=== PATIENT | male | born 1990 | race Caucasian/White ===

== ENCOUNTER 2019-03-05 15:56 | Inpatient (IN) | payer MEDICAID ==
[~2019-03-05] VITALS: Ht 180.3 cm; Wt 83.9 kg
[~2019-03-05 15:56] MED LIST: ACYCLOVIR IV 1 GM in IV D5W 250 ML IV SCH
[2019-03-05] MEDS ORDERED: FEE PK DOSING 1 MIN EA MC ONE (16:01)
[2019-03-05] MEDS ORDERED: QUET25TA PO (16:20)
--- NOTE | 2019-03-05 16:24 | NUR ---
[facility] ([phone]) RE: PATIENT, STATING PATIENT BEING A MISSING PERSON. PER PD, WILL CALL US BACK FOR MORE INFO, SUCH FAMILY INFO.
[2019-03-05] MEDS ORDERED: PIPERACILLIN /TAZOBACTAM 3.375 G in IV D5W 50 ML IV ONE (16:30)
[2019-03-05] MEDS ORDERED: VANCOMYCIN 1 GM in IV D5W 250 ML IV ONE (16:30)
[2019-03-05] MEDS ORDERED: IV NS 0.9% 1,000 ML BAG IV ONE (16:30)
[2019-03-05 16:38] LABS: BASOPHILS # (AUTO) 0.1 /CMM (0.0-0.2); BASOPHILS % (AUTO) 0.3 % (0.0-2.0); EOSINOPHILS % (AUTO) 0.4 % (0.0-6.0); HEMATOCRIT 44 % (39-51); HEMOGLOBIN 14.8 g/dL (13.5-17.5); LYMPHOCYTES # (AUTO) 1.4 /CMM (0.8-4.8); LYMPHOCYTES % (AUTO) 8.2 % (20.0-44.0); MEAN CORPUSCULAR HGB CONC 34 g/dl (31.0-36.0); MEAN CORPUSCULAR VOLUME 90 fL (80-96); MONOCYTES # (AUTO) 1.7 /CMM (0.1-1.30); MONOCYTES % (AUTO) 9.6 % (2.0-12.0); NEUTROPHILS # (AUTO) 14.4 /CMM (1.8-8.9); NEUTROPHILS % (AUTO) 81.5 % (43.0-81.0); PLATELET COUNT (AUTO) 295 /CMM (150-450); RED BLOOD CELL COUNT(AUTO) 4.94 MIL/uL (4.5-6.0); WHITE BLOOD COUNT (AUTO) 17.6 K/uL (4.3-11.0)
[2019-03-05 16:47] LABS: CALCIUM, SERUM 9.6 mg/dL (8.5-10.1); CARBON DIOXIDE 24 mmol/L (21-32); CHLORIDE 104 mmol/L (98-107); CREATININE 1.3 mg/dL (0.6-1.3); GLUCOSE 122 mg/dL (74-106); POTASSIUM 4.3 mmol/L (3.5-5.1); SODIUM SERUM 143 mmol/L (136-145); UREA NITROGEN, BLOOD 20 mg/dL (7-18)
--- NOTE | 2019-03-05 16:47 | NUR ---
[address]IB [address] C/O AGITATION, +HEARING VOICES, -SI. STOP TAKING SEROQUEL. PT AAOX3, VSS. PT STS THAT HE DROVE FROM [facility] TO GO TO [place]. PT STS HE LOST HIS CAR. PT CALM & COOPERATIVE AT THIS TIME. DENIES CP, SOB, DIZZINESS, N/V/D, ABD PAIN AT THIS TIME & WILL CONT TO MONITOR.
[2019-03-05 16:53] LABS: ALANINE AMINOTRANSFERASE 45 U/L (12-78); ALBUMIN 4.6 g/dL (3.4-5.0); ALCOHOL, BLOOD < 3 mg/dL (0-0); ALKALINE PHOSPHATASE 58 U/L (46-116); ASPARTATE AMINOTRANSFERASE 64 U/L (15-37); BILIRUBIN,DIRECT 0.3 mg/dL (0.0-0.2); BILIRUBIN,TOTAL 1.8 mg/dL (0.2-1.0); TOTAL PROTEIN, SERUM 8.4 g/dL (6.4-8.2)
[2019-03-05 16:54] LABS: ACETAMINOPHEN 5 ug/ml (10-30); SALICYLATE < 2.0 mg/dL (2.8-20.0)
[2019-03-05] MEDS ORDERED: QUETIAPINE FUMARATE 100 MG TABLET PO SCH (18:30)
[2019-03-05] MEDS ORDERED: QUETIAPINE FUMARATE 25 MG TABLET ONE (18:39)
[2019-03-05] MEDS ORDERED: LORAZEPAM INJ 2 MG/ML VIAL IM ONE ×2 (19:00→20:00)
[2019-03-05] MEDS ORDERED: diphenhydrAMINE HCL 50 MG/ML VIAL IM ONE ×2 (19:00→20:00)
[2019-03-05] MEDS ORDERED: HALOPERIDOL LACTATE INJ 5 MG/ML VIAL IM ONE ×2 (19:00→19:30)
[2019-03-05] MEDS ORDERED: LORAZEPAM INJ 2 MG/ML VIAL ONE (19:00)
[2019-03-05] MEDS ORDERED: HALOPERIDOL LACTATE INJ 5 MG/ML VIAL ONE (19:00)
[2019-03-05] MEDS ORDERED: diphenhydrAMINE HCL 50 MG/ML VIAL ONE (19:00)
[2019-03-05] MEDS ORDERED: diphenhydrAMINE HCL 50 MG/ML VIAL IV ONE (19:30)
[2019-03-05] MEDS ORDERED: ZOLPIDEM TARTRATE 5 MG TABLET PO PRN (19:30)
[2019-03-05] MEDS ORDERED: Z GUARD REMEDY 2 OZ OINT TP PRN (19:30)
[2019-03-05] MEDS ORDERED: ONDANSETRON HCL/PF 4 MG/2 ML VIAL IVP PRN (19:30)
[2019-03-05] MEDS ORDERED: ACETAMINOPHEN 325 MG TABLET PO PRN (19:30)
[2019-03-05] MEDS ORDERED: LORAZEPAM INJ 2 MG/ML VIAL IVP ONE (19:30)
[2019-03-05] MEDS ORDERED: HYDROCODONE/APAP 5/325MG 1 EACH TABLET PO PRN (19:30)
[2019-03-05] MEDS ORDERED: MAGNESIUM HYDROXIDE 30 ML UDC PO PRN (19:30)
[2019-03-05] MEDS ORDERED: IV NS 0.9% 1,000 ML IV PRN (19:30)
--- NOTE | 2019-03-05 19:41 | NUR ---
PT GETTING RESTLESS, PULLED IV & TRYING TO LEAVE. MEDICATED PER PA'S ORDER. PLACED ON 4 PT RESTRAINTS FOR PT'S SAFETY, INTACT WITH GOOD CMS. WILL CONT TO MONITOR.
[2019-03-05 21:04] LABS: APPEARANCE,URINE Clear (CLEAR); BILIRUBIN,URINE SMALL (NEGATIVE); BLOOD, URINE Trace-intact Ery/uL (NEGATIVE); COLOR,URINE Yellow (YELLOW); KETONES,URINE 40 (NEGATIVE); LEUKOCYTE ESTERASE ,URINE Negative (NEGATIVE); NITRITE, URINE Negative (NEGATIVE); PROTEIN,URINE 100 mg/dl (NEGATIVE); UGLUCOSE Negative (NEGATIVE); UROBILINOGEN,URINE 0.2 EU/dL (0.2)
[2019-03-05 21:06] LABS: BACTERIA,URINE Few /HPF (None Seen); MUCUS,URINE Many /LPF (None Seen); SQUAMOUS EPITHELIAL CELL,UR None Seen /HPF (None Seen)
--- NOTE | 2019-03-05 21:30 | NUR ---
RN NOTES ADMITTED A 28 Y/O MALE, FROM ER VIA [facility], INITIAL ASSESSMENT AND ADMISSION DONE, INFORMED JOHANNA REGARDING ADMISSION, PATIENT SLEEPING AT THIS TIME WITH A SITTER, SAFETY MEASURES IN PLACE, WILL CONTINUE TO MONITOR.
[2019-03-05] MEDS ORDERED: ENOXAPARIN SODIUM 80 MG/0.8 ML DISP.SYRIN SQ ONE (23:30)
[2019-03-05] MEDS ORDERED: LORAZEPAM INJ 2 MG/ML VIAL IV ONE (23:30)
--- NOTE | 2019-03-06 00:05 | NUR ---
RN NOTES PATIENT TRANSPORTED TO RADIOLOGY DEPARTMENT FOR CT OF THE HEAD W/O CONTRAST.
[2019-03-06] MEDS ORDERED: CEFTRIAXONE 1 G VIAL ONE (00:09)
--- NOTE | 2019-03-06 00:23 | NUR ---
RN NOTES CAME BACK FROM RADIOLOGY DEPT.
[2019-03-06] MEDS ORDERED: VANCOMYCIN 1 GM VIAL ONE (00:41)
[2019-03-06] MEDS ORDERED: ACYCLOVIR IV 500 MG VIAL IV ONE (01:08)
[2019-03-06] MEDS: ACYCLOVIR IV 1 GM in IV D5W 250 ML IV SCH ×2 (03:49→11:59)
[2019-03-06 07:11] LABS: BASOPHILS % (AUTO) 0.3 % (0.0-2.0); EOSINOPHILS % (AUTO) 1.9 % (0.0-6.0); HEMATOCRIT 38 % (39-51); HEMOGLOBIN 12.8 g/dL (13.5-17.5); LYMPHOCYTES # (AUTO) 1.2 /CMM (0.8-4.8); MEAN CORPUSCULAR HGB CONC 34 g/dl (31.0-36.0); MEAN CORPUSCULAR VOLUME 90 fL (80-96); MONOCYTES % (AUTO) 7.7 % (2.0-12.0); NEUTROPHILS # (AUTO) 10.7 /CMM (1.8-8.9); NEUTROPHILS % (AUTO) 81.1 % (43.0-81.0); PLATELET COUNT (AUTO) 213 /CMM (150-450); RED BLOOD CELL COUNT(AUTO) 4.24 MIL/uL (4.5-6.0); WHITE BLOOD COUNT (AUTO) 13.2 K/uL (4.3-11.0)
[2019-03-06 07:21] LABS: CALCIUM, SERUM 7.6 mg/dL (8.5-10.1); CREATININE 0.9 mg/dL (0.6-1.3); MAGNESIUM 2.2 mg/dL (1.8-2.4); PHOSPHORUS 3.1 mg/dL (2.5-4.9); POTASSIUM 3.5 mmol/L (3.5-5.1)
--- NOTE | 2019-03-06 07:24 | NUR ---
RN NOTES ALL NEEDS ATTENDED AND MET, SLEEPING THE ENTIRE NIGHT SINCE ADMISSION AT 2100, AROUSABLE SITTER AT BEDSIDE PRECAUTIONARY MEASURE OBSERVED FOR POSSIBLE VIRAL / BACTERIAL MENINGITIS PER JOHANNA SKY. ALL SAFETY MEASURES IN PLACE, KEEP RESTED. MOM FORTUNATO REARDON ) CALLED AT 0700 GAVE THE PATIENT'S PSYCHIATRIST CONTACT NUMBER [phone], STATES THAT [facility] HAS A PRESCRIBED MEDICATION LITHIUM 600 MG AND LATUDA 60 MG, HE IS SUPPOSED TO BE TAKING THE MEDICATION BUT HE ABRUPTLY STOPPED TAKING THOSE MEDICATIONS REGULARLY, PATIENT LEFT THE [facility]( [facility] ) LAST TUESDAY PER MOM, INFORMED MOM REGARDING PATIENT'S CURRENT CONDITION AND THAT MD AND AM NURSE WILL CONTACT HER TODAY FOR MORE INFORMATION IF NEEDED. ENDORSED TO FELICIA RODRIGUEZ LVN AND AM NURSE JUDITH FOR CONTINUITY OF CARE.
[2019-03-06] MEDS: VANCOMYCIN 0.75 GM in IV D5W 250 ML IV SCH ×4 (07:58→16:04)
--- NOTE | 2019-03-06 08:00 | NUR ---
RN OPENING NOTE RECEIVED PT. PT STABLE RESTING IN BED. NO S/S OF RESP DISTRESS. NO C/O PAIN. 1:1 SITTER AT BEDSIDE. DROPLET PRECAUTIONS IN PLACE FOR SUSPECTED BACTERIAL/VIRAL MENINGITIS. HEAD CT NEGATIVE, PT DENIES HEADACHE AT THIS TIME. SAFETY MEASURES IN PLACE, CALL LIGHT IN REACH. WILL CONT TO MONITOR.
--- NOTE | 2019-03-06 08:00 | NUR ---
m/s cutting inspector: notes during my assessment, pt awakens then goes back to sleep, will only say one word "good morning." speech clear. i am unable to assess his skin integrity at this time, will assess when pt is fully awake. will continue to monitor.
[2019-03-06 08:30] VITALS: BP 127/59
--- NOTE | 2019-03-06 08:30 | NUR ---
m/s english and reading instructor: notes pt remains asleep, but easily arousable. able to take his vital signs except for temperature at this time due to pt not fully awake. will continue to monitor.
--- NOTE | 2019-03-06 10:30 | NUR ---
m/s plasma cutting machine operator: wound consult ella (rn) at bedside and assessed yfn foot blisters. pt allowed staff to check his feet, but not entire body. respected pt wish and pt fell asleep after assessment. will continue to monitor.
--- NOTE | 2019-03-06 10:40 | NUR ---
WOUND CARE CONSULT: PT PRESENTS WITH MULTIPLE BLISTERS ON HIS FEET, PRESENT ON ADMISSION. RECOMMEND DPM CONSULT. DR WILLINGHAM NOTIFIED OF DPM CONSULT. PT IS CONTINENT AND INDEPENDENT WITH BED MOBILITY. WILL SEE PRN.
[2019-03-06] MEDS: ENOXAPARIN SODIUM 80 MG/0.8 ML DISP.SYRIN SQ SCH ×2 (12:00→22:34)
--- NOTE | 2019-03-06 12:30 | NUR ---
m/s constitutional law professor: md visit seen and examined by dr. avery at this time.
[2019-03-06] MEDS: LITHIUM CARBONATE (300 MG CAP) 300 MG CAPSULE PO SCH ×2 (13:48→16:07)
[2019-03-06] MEDS: QUETIAPINE FUMARATE 100 MG TABLET PO SCH (13:49)
--- NOTE | 2019-03-06 14:00 | NUR ---
m/s traveling passenger agent: semiconductor manufacturing technician consult seen by dr. mcgregor at this time.
[2019-03-06] MEDS: LACTOBACILLUS RHAMNOSUS GG 1 EACH CAP.SPRINK PO SCH (16:04)
--- NOTE | 2019-03-06 17:00 | NUR ---
m/s glue maker bone: neuro consult seen by dr. grant at this time.
--- NOTE | 2019-03-06 18:45 | NUR ---
m/s supervisor rolling room: id consult seen by mamta (kristen) at this time.
--- NOTE | 2019-03-06 18:52 | NUR ---
RN CLOSING NOTE PT IN BED RESTING. PT'S MOTHER, FORTUNATO, ASKS THAT CASE MANAGEMENT BE CONTACTED FOR D/C PLACEMENT TO ADULT PSYCHIATRIC FACILITY.. ALL PT NEEDS ANTICIPATED AND MET. SAFETY MEASURES IN PLACE, CALL LIGHT WITHIN REACH. WILL ENDORSE TO BATTERY CONTAINER FINISHING HAND FOR ONELIA.
--- NOTE | 2019-03-06 19:25 | NUR ---
RN Notes Received patient asleep with HOB slightly elevated, breathing regular and unlabored, no signs of distress and discomfort noted. IV access on right AC patent and intact with ongoing IVF infusing well. Safety measures and fall precaution observed, with sitter at bedside. Will continue to monitor patient.
[2019-03-06] MEDS: IV NS 0.9% 1,000 ML IV PRN (22:37)
--- NOTE | 2019-03-06 22:45 | NUR ---
RN Notes Patient moved to room 205-1, awake, alert and verbal in stable condition. All IV meds and belongings sent with the and endorsed patient to [facility].
--- NOTE | 2019-03-06 23:00 | NUR ---
MS RN NOTE: RECEIVED PATIENT FROM [facility], NO ACUTE DISTRESS NOTED. BREATHING EVEN AND UNLABORED, NO SOB NOTED. IV TO RAC IN PLACE. SITTER AT BEDSIDE. BED LOCKED AND IN LOWEST POSITION, CALL LIGHT IN REACH. WILL CONTINUE TO MONITOR.
[2019-03-07] MEDS: CEFTRIAXONE 1 G in IV D5W 50 ML IV SCH ×2 (00:34→00:36)
[2019-03-07] MEDS: VANCOMYCIN 0.75 GM in IV D5W 250 ML IV SCH ×3 (01:09→16:03)
[2019-03-07] MEDS: QUETIAPINE FUMARATE 100 MG TABLET PO SCH ×3 (01:19→17:33)
--- NOTE | 2019-03-07 06:07 | NUR ---
MS RN NOTE: PATIENT RESTING IN BED, NO ACUTE DISTRESS NOTED. BREATHING EVEN AND UNLABORED, NO SOB NOTED. IV TO RAC IN PLACE, INFUSING NS AT 100ML/HR. SITTER AT BEDSIDE. BED LOCKED AND IN LOWEST POSITION, CALL LIGHT IN REACH. WILL ENDORSE TO DAY NURSE TO CONTINUE WITH PLAN OF CARE.
--- NOTE | 2019-03-07 07:15 | NUR ---
MS RN NOTE: RECEIVED CALL FROM PATIENT MOTHER, FORTUNATO, THAT PATIENT CALLED HER AND INFORMED HER THAT HE IS IN MANIC PHASE AND SAYING THAT PATIENT MORE PARANOID. CONTACTED QUIRK SANDER MD TO HAVE PATIENT SEEN BY PSYCH MD. RECEIVED OK FOR PSYCH EVAL, FACE SHEET FAXED TO GPS AND INFORMED CHARGE NURSE IN GPS TO HAVE PSYCH MD EVAL PATIENT. PATIENT MOTHER NUMBER IS [phone]. PATIENT PSYCH DOCTOR IS DR. DOYLE AT [phone]. WILL ENDORSE TO DAY NURSE
[2019-03-07 08:00] VITALS: BP 181/89
--- NOTE | 2019-03-07 08:00 | NUR ---
MS RN AM Notes Received patient awake,anxious and angry talking on the phone. No SOB.breathing regular and unlabored, no signs of distress and discomfort noted. IV access on right AC patent and intact with ongoing IVF infusing well. Safety measures and fall precaution observed, with 1:1 sitter at bedside. Seen by Dr Wills with orders carried out.Awaiting for psych consult with Dr Patel. GPS aware.Will continue to monitor patient.
[2019-03-07] MEDS ORDERED: LACTULOSE 10 G/15 ML UDC (PYXIS) PO PRN (08:30)
[2019-03-07] MEDS: LITHIUM CARBONATE (300 MG CAP) 300 MG CAPSULE PO SCH ×3 (09:05→17:32)
[2019-03-07] MEDS: LACTOBACILLUS RHAMNOSUS GG 1 EACH CAP.SPRINK PO SCH ×2 (09:05→17:33)
[2019-03-07] MEDS: RIVAROXABAN 15 MG TABLET PO SCH ×2 (09:16→17:34)
--- NOTE | 2019-03-07 09:17 | NUR ---
MS RN NOTE SPOKE WITH MOTHER FORTUNATO VIA TELEPHONE. PER FORTUNATO SHE IS CONCERNED THAT THE PT HAS BEEN CALLING HER AND PER FORTUNATO "SAYING HE IS WORRIED SOMEONE IS GOING TO KILL HIM BUT HE WON'T SAY IT TO YOU". PER FORTUNATO "HE HAS A COURT ORDER TO TAKE HIS MEDICATIONS", THE NURSE REQUESTED THAT THIS DOCUMENTATION BE FAXED TO THE UNIT, HOWEVER FORTUNATO STATED SHE DID NOT HAVE THE DOCUMENTS WITH HER AT THIS TIME. PER FORTUNATO "THE BACK GRINDER HAS IT". THE NURSE PROVIDED FAX NUMBER FOR THE UNIT. FORTUNATO PROVIDED PRIMARY PSYCHIATRIST INFORMATION () [phone], PLACED INFORMATION IN THE CHART AND FLAGGED FOR CONSULTING [place] PSYCHIATRIST. INFORMED FORTUNATO THAT AT THIS TIME PT HAS A 1:1 SITTER FOR SAFETY AND AN ORDER HAS BEEN PLACED FOR PSYCH CONSULT. FOTRUNATO STATED "HE NEEDS A SHOT WHEN HE GETS LIKE THIS". INFORMED FORTUNATO THAT MEDICATIONS WILL BE REVIEWED AND THE PSYCHIATRIST WILL ORDER WHAT IS APPROPRIATE AFTER ASSESSMENT. FORTUNATO STATED "OKAY THANKS".
[2019-03-07 09:18] LABS: BASOPHILS % (AUTO) 0.4 % (0.0-2.0); EOSINOPHILS % (AUTO) 1.8 % (0.0-6.0); HEMATOCRIT 40 % (39-51); HEMOGLOBIN 13.4 g/dL (13.5-17.5); LYMPHOCYTES # (AUTO) 1.5 /CMM (0.8-4.8); LYMPHOCYTES % (AUTO) 14.1 % (20.0-44.0); MEAN CORPUSCULAR HGB CONC 34 g/dl (31.0-36.0); MEAN CORPUSCULAR VOLUME 89 fL (80-96); MONOCYTES # (AUTO) 0.9 /CMM (0.1-1.30); MONOCYTES % (AUTO) 8.8 % (2.0-12.0); NEUTROPHILS % (AUTO) 74.9 % (43.0-81.0); PLATELET COUNT (AUTO) 244 /CMM (150-450); RED BLOOD CELL COUNT(AUTO) 4.42 MIL/uL (4.5-6.0); WHITE BLOOD COUNT (AUTO) 10.7 K/uL (4.3-11.0)
--- NOTE | 2019-03-07 09:19 | NUR ---
MS RN NOTE INFORMED PILO IN [facility] OF NEED FOR PSYCH CONSULT. VERIFIED ORDER AND FAXED FACE SHEET TO GPS.
[2019-03-07 09:31] LABS: ALBUMIN 3.4 g/dL (3.4-5.0); BILIRUBIN,TOTAL 0.5 mg/dL (0.2-1.0); CALCIUM, SERUM 8.8 mg/dL (8.5-10.1); POTASSIUM 3.7 mmol/L (3.5-5.1); TOTAL PROTEIN, SERUM 7.2 g/dL (6.4-8.2)
--- NOTE | 2019-03-07 09:40 | NUR ---
Seen by Dr Patel with orders made and carried out.Refused to talk to pt's psych MD saying he doesn't need to talk to pt's psych MD.Also Dr Patel stated that the pt doesn't need to be seen by Crisis Team either. Informed GPS to cancel Crisis Team for the pt per Dr Patel.
[2019-03-07 10:19] LABS: THYROID STIMULATING HORMONE 1.466 uIU/mL (0.358-3.74)
--- NOTE | 2019-03-07 11:36 | NUR ---
Social service consult requested by YAAKOV Bah for homelessness. Pt. is a 28 year old male with a history of bipolar disorder and schizophrenia who was brought in by rescue ambulance from the streets with abnormal behavior. Per EMS they found patient crawling on the ground and behaving strangely. SW met with pt. bedside. Pt's cousin Vitaliy was visiting bedside. Vitaliy stepped outside the room during the assessment for privacy. Pt. is alert and oriented x 3. SW asked pt. if he is homeless and pt. stated, " People are making me homeless." Pt. states he lives with his mom in [place] and drove down to [place] five days ago. Pt. stated he came to [place] to visit his cousin Vitaliy but couldn't find him. While in [place], pt. lost his car stating, " It's near a pizza place in [place]." Pt. states his step-dad has a spare diaz and will be getting the car for him. Pt. appears a bit guarded and paranoid but is cooperative with SW during the assessment. Pt. has a sitter bedside. Pt. states he drinks two glasses, shots or cans of whatever alcohol he can on a daily basis. Pt. states he smoked weed 4 months ago and CBD oil a month ago. Pt. states he has a psychiatric diagnosis of Schizo-Affective disorder and takes [place] and Seroquel. Pt. states he is planning to get his car back and go back to [place]. Pt. has no clothing and shoes. SW to provide pt. with shoes and clothing prior to discharge.
[2019-03-07] MEDS: IV NS 0.9% 1,000 ML IV PRN (16:01)
[2019-03-07] MEDS: BENZTROPINE MESYLATE (1 MG) 1 MG TABLET PO SCH (17:32)
--- NOTE | 2019-03-07 19:30 | NUR ---
RECEIVED PATIENT IN BED AWAKE. AO X 3, ABLE TO MAKE NEEDS KNOWN. NO ACUTE DISTRESS NOTED. DENIES ANY PAIN AT THIS TIME. SISTER AT BEDSIDE. PATIENT CALM AT THIS TIME. IV SITE PATENT, INTACT; IVF INFUSING ORDERED. SAFETY REMINDERS GIVEN. ON LOW BED WITH BILATERAL UPPER SIDE RAILS UP. CALL WOO WITHIN EASY REACH. WILL CONTINUE TO MONITOR
[2019-03-07 20:00] VITALS: BP 117/65
[2019-03-07] MEDS: DOXYCYCLINE HYCLATE (100 MG) 100 MG TABLET PO SCH (20:19)
--- NOTE | 2019-03-08 01:12 | NUR ---
DR. SANABRIA MADE AWARE THAT PATIENT IS ANXIOUS, VERY SCARED DUE TO THE VOICES IN HIS HEAD. PATIENT THINKS THAT SOMEONE PRETENDING TO BE A HOSPITAL WORKER IS TRYING TO HARM HIM. PATIENT WAS SHAKING AT TIMES. VS WNL. SISTER BEDSIDE. PATIENT NOT A DANGER TO SELF AND/OR OTHERS AT THIS TIME. DR. SANABRIA ORDERED ZYPREXA 10 MG PO X 1 NOW AND ATIVAN 2 MG PO X 1 NOW; NOTED AND CARRIED OUT. PATIENT AND SISTER MADE AWARE OF NEW ORDERS; AGREEABLE.
[2019-03-08] MEDS ORDERED: LORAZEPAM 1 MG TABLET PO ONE ×2 (01:30)
[2019-03-08] MEDS ORDERED: OLANZAPINE 5 MG/TAB.RAPDIS PO ONE (01:30)
[2019-03-08] MEDS: IV NS 0.9% 1,000 ML IV PRN (04:52)
--- NOTE | 2019-03-08 06:00 | NUR ---
PATIENT ASLEEP, EASILY AROUSABLE. RESPIRATIONS EVEN. NO SIGNS OF PAIN NOTED. DUE MEDS GIVEN WITH NO ASE NOTED. IVF INFUSING ORDERED. NEEDS ATTENDED. SAFETY PRECAUTIONS AND COMFORT MEASURES IN PLACE. WILL GIVE REPORT TO DAY SHIFT FOR CONTINUITY OF CARE.
[2019-03-08 07:43] VITALS: BP_SYST 122; BP_SYST 125; BP_DIAS 67; BP_DIAS 71
--- NOTE | 2019-03-08 08:00 | NUR ---
MS RN AM Notes Received patient comfortably sleeping but arousable in bed with sister,Loan at the bedside.No SOB.Breathing regular and unlabored, denies distress and discomfort. IV access on right AC patent and intact with ongoing IVF infusing well. Safety measures and fall,bleeding precautions observed, with 1:1 sitter at bedside. Call light within reach.Seen by Dr Wills with orders carried out. Will continue to monitor patient.
[2019-03-08] MEDS: QUETIAPINE FUMARATE 100 MG TABLET PO SCH ×3 (08:34→19:01)
[2019-03-08] MEDS: BENZTROPINE MESYLATE (1 MG) 1 MG TABLET PO SCH ×2 (08:34→19:00)
[2019-03-08] MEDS: LACTOBACILLUS RHAMNOSUS GG 1 EACH CAP.SPRINK PO SCH ×2 (08:34→19:00)
[2019-03-08] MEDS: DOXYCYCLINE HYCLATE (100 MG) 100 MG TABLET PO SCH (08:34)
[2019-03-08] MEDS: LITHIUM CARBONATE (300 MG CAP) 300 MG CAPSULE PO SCH ×3 (08:35→19:00)
[2019-03-08] MEDS: RIVAROXABAN 15 MG TABLET PO SCH ×3 (08:39→17:00)
--- NOTE | 2019-03-08 09:02 | NUR ---
PT HAD A NOSE BLEED AND WAS SEEN BY DR DILL WHO ORDERED TO HOLD XARELTO FOR NOW.KEPT PT CLEAN AND DRY.
--- NOTE | 2019-03-08 09:15 | NUR ---
PT'S NOSE BLEEDING HAS STOPPED AND INSTRUCTED PT TO CONTINUE PUTTING PRESSURE IN HIS NOSTRILS AND BREATHE THROUGH HIS MOUTH.APPLIED COLD COMPRESS ON THE FOREHEAD. PROVIDED CLEAN TOWELS AND TISSUES.CHANGED PT HOSPITAL GOWN AND KEPT CLEAN AND DRY.
--- NOTE | 2019-03-08 10:30 | NUR ---
PT HAS BEEN SO ANXIOUS IN TAKING A SHOWER SAYING HE HASN'T TAKEN A SHOWER FOR 5 DAYS. SPONGE BATH PROVIDED YESTERDAY AND SPONGE BATH OFFERED AGAIN TODAY BUT PT REFUSED AND WANTED TO HAVE SHOWER. NO FURTHER BLEEDING NOTED. PT TOOK A SHOWER WITH CLOSE SUPERVISION , CLOSELY MONITORED FOR SAFETY PROTECTING IV LINES AND WOUND CARE AND WOUND DRESSING CHANGE DONE AFTER THE SHOWER.PT TOLERATED WELL. PT VERBALIZED OF FEELING FRESH AND CLEAN AND IN A PLEASANT MOOD. NO SI/HI VERBALIZED.COMPLIANT WITH MEDS AND TX. SISTER,JEFF IS AT THE BEDSIDE. NOT A DANGER TO SELF AND OTHERS.PT WAS CALM IN BED WITH OCCASIONAL DELUSIONAL OR PARANOID EPISODES THINKING THAT THE GOVT HAS HIDDEN CAMERAS AROUND MONITORING ON HIM TO HURT HIM. REORIENTATION GIVEN.WILL MONITOR.
--- NOTE | 2019-03-08 12:33 | NUR ---
CUCO met with pt. and his sister Loan bedside. Pt. appears to be calm and cooperative at this time. Pt. was seen by Dr. Mark and cleared psychiatrically, however crisis team will evaluate the pt. prior to being discharged. If pt. is discharged by crisis team, pt. will be going back to [place] with his sister. Pt. stated there are two places he is going to go to, either his mom's house or an abandoned building by the free[place] he hangs out at. Pt's sister Loan brought him some clothes and SW provided pt. with shoes. No other social service needs are requested at this time. SW is available, if needed.
--- NOTE | 2019-03-08 15:00 | NUR ---
SEEN BY RITA,RN OF CRISIS TEAM AND STATED THAT PT DOESN'T QUALIFY FOR HOLD AND THAT PT IS NON HOLDABLE. RITA SPOKE TO PT'S MOM, FORTUNATO ON THE PHONE AND EXPLAINED HER EVALUATION ON THE PT. INFORMED DR DILL OF PT'S EVALUATION RESULT FROM CRISIS TEAM WITH CLEARANCE FOR DISCHARGE. DR SANABRIA GAVE DISCHARGE PRESCRIPTION ON THE CHART ONCE PT IS MEDICALLY CLEARED.
[2019-03-08 15:20] LABS: CALCIUM, SERUM 8.8 mg/dL (8.5-10.1); POTASSIUM 3.9 mmol/L (3.5-5.1)
--- NOTE | 2019-03-08 16:00 | NUR ---
PT HAS NO BLEEDING EPISODES,NON COMBATIVE,NOT A DANGER TO SELF AND OTHERS, WITH OCCASIONAL PARANOIA AND DELUSIONS BUT CALMS AND COOPERATES WHEN PROCEDURE IS EXPLAINED CALMLY TO HIM.PT IS COMPLIANT WITH MEDS AND TX , NO SI/HI ,NO PAIN OR DISTRESS AND SAFE FOR DISCHARGE/RELEASE. WILL MONITOR.
--- NOTE | 2019-03-08 17:00 | NUR ---
HELD XARELTO DUE TO THE NOSE BLEEDING EPISODE THIS AM. NO BLEEDING SINCE AFTER THE NOSE BLEEDING EPISODE THIS MORNING .WILL MONITOR FOR ANY BLEEDING EPISODE.
--- NOTE | 2019-03-08 18:00 | NUR ---
PT'S PSYCH DOCTOR,DR DOYLE CALLED AND WAS COMPLAINING IF WHY WILL THE PT BE DISCHARGED UNSTABLE.EXPLAINED THAT THE PT WAS SEEN BY CRISIS TEAM AND WAS NON HOLDABLE.PT IS MEDICALLY STABLE AT THIS TIME AND WAS CLEARED BY DR SANABRIA (PSYCH) AND DR DILL (MEDICAL) FOR DISCHARGE. PT IS NON COMBATIVE,NOT A DANGER TO SELF AND OTHERS,PT IS COMPLIANT WITH MEDS AND TX , NO SI/HI ,NO PAIN OR DISTRESS AND SAFE FOR RELEASE WITH STABLE V/S. DR DOYLE STILL UPSET ON THE PHONE RAISING HER VOICE STATING THAT SHE WILL FILE A COMPLAINT AGAINST THE PSYCH MD, HOSPITALIST AND THE JUDICIAL ADMINISTRATIVE ASSISTANT TOMORROW MORNING. ASKED FOR THE PHONE NUMBERS OF DR SANABRIA, HOSPITALIST (EPIC NUMBER GIVEN) ,AND JUDICIAL ADMINISTRATIVE ASSISTANT'S WELL.
--- NOTE | 2019-03-08 20:03 | NUR ---
DISCHARGE INSTRUCTIONS,MED INSTRUCTION OF HOLDING THE XARELTO DUE TO NOSE BLEEDING GIVEN TO THE PT/PT'S SISTER,JEFF. IV H/L REMOVED TO RT AC WITHOUT BLEEDING NOTED.PT TOLERATED WELL.WOUND CARE TEACHING AND TX GIVEN AND EMPHASIZED SEVERAL TIMES TO JEFF TO FOLLOW UP WITH PRIMARY AND PSYCH DOCTOR IN 5 DAYS SPECIALLY FOR THE RESUMPTION OF XARELTO.DISCHARGED WITH STABLE V/S. NO FURTHER NOSE BLEEDING EPISODE AFTER THIS AM EPISODE OF NOSE BLEEDING.BLEEDING PRECAUTIONARY INSTRUCTIONS GIVEN.DENIES ANY PAIN OR DISTRESS.PT IS CALM IN BED WITH OCCASIONAL DELUSIONS,COMPLIANT WITH MEDS AND COOPERATIVE WITH STAFF WHEN MEDS/PROCEDURE IS EXPLAINED,NO SI/HI EPISODES,DENIES ANY DISTRESS OR DISCOMFORT.WOUND DRESSING CHANGE AND TX DONE ORDERED WITH DRESSING CLEAN AND DRY.ABLE TO AMBULATES WITH MIN ASSIST.PROVIDED WALKER TO AID IN WALKING TO AVOID PRESSURE ON HIS FOOT WOUNDS.GOOD HANDWASHING AND UNIVERSAL PRECAUTION TEACHING PROVIDED.DISCHARGED HOME VIA UBER.
--- NOTE | 2019-03-08 20:50 | NUR ---
PATIENT BROUGHT DOWN TO LOBBY VIA WHEELCHAIR BY LEARNING DISABILITIES RESOURCE TEACHER. SISTER JEFF IS WITH PATIENT. PATIENT IN STABLE IN CONDITION.
[2019-03-08] MEDS ORDERED: SULFAMETH/TRIMETH 800/160 MG 1 UDTAB TABLET PO SCH (21:00)
[2020-03-28] MEDS ORDERED: RIVAROXABAN 10 MG TABLET PO SCH (17:00)
== END 2019-03-08 20:50 | disposition home or self-care (01) | DRG 197 ==
LOC: ER 16:00 → MED 20:04 → MEDSG2 03-06 22:59
PROVIDERS: ADMIT Nurse Practitioner Acute Care; ATTEND Internal Medicine
DX: I82.412 Acute embolism and thrombosis of left femoral vein (principal); N17.0 Acute kidney failure with tubular necrosis; G92 Toxic encephalopathy; K83.1 Obstruction of bile duct; L03.116 Cellulitis of left lower limb; L03.115 Cellulitis of right lower limb; Z59.0 Homelessness; S90.822A Blister (nonthermal), left foot, initial encounter; S90.821A Blister (nonthermal), right foot, initial encounter; X58.XXXA Exposure to other specified factors, initial encounter; Y93.89 Activity, other specified; Y92.9 Unspecified place or not applicable; F25.0 Schizoaffective disorder, bipolar type; R40.2142 Coma scale, eyes open, spontaneous, at arrival to emergency department; R40.2232 Coma scale, best verbal response, inappropriate words, at arrival to emergency department; R40.2362 Coma scale, best motor response, obeys commands, at arrival to emergency department
CPT/HCPCS: 36415; 70450-TC; 71045-TC; 73620-TC; 76700-TC; 80048-TC; 80053-TC; 80061-TC; 80076-TC; 80202-TC; 80305; 81000-TC; 82140-TC; 82962-TC; 83605-TC; 83735-TC; 84100-TC; 84439-TC; 84443-TC; 84484-TC; 85025-TC; 85730-TC; 87040-TC; 87070-TC; 87081-TC; 87086-TC; 87186-TC; 87806; 93970-TC; A6402; A6403; G0378; G0480; J0133; J0696; J1200; J1630; J1650; J2060; J2543; J3370; J7030; J7060